=== PATIENT | female | born 1990 | race Caucasian/White ===

== ENCOUNTER 2020-04-12 09:37 | Emergency (ER) | payer MEDICARE ==
[~2020-04-12] VITALS: Ht 170.2 cm; Wt 199.6 kg
[~2020-04-12 09:37] MED LIST: ACETAMINOPHEN-1 EAC1 PO; ACYCLOVIR 800800 MG PO; ADVAIR HFA 45-218 GM INH; ARTHRITIS PAIN650 M2; BACTRIM DS TAB1 EACH PO; BENTYL20 MG PO; BLACK COHOSH200 MG PO; BUTALB-APAP-CA1 EACH PO; CARAFATE 1 GM TA1 G1 PO; CELEBREX 200 M200 MG; CIPROFLOXACIN500 M1 PO; CIPROFLOXACIN500 M3 PO; CLEOCIN HCL150 MG PO; CLEOCIN HCL300 MG PO; COLACE100 MG; COMBIVENT INH; CYMBALTA30 MG; DOXYCYCLINE 10100 MG PO; FERROUS GLUCON325 M4; FLAGYL500 MG PO; FLEXERIL PO; FUROSEMIDE 40 M40 M1; GLUCOPHAGE; GLUCOPHAGE1000 MG PO; HYDROCODONE-AP1 EAC6 PO; IBUPROFEN 800800 M1 PO; KEFLEX500 MG PO; KLOR-CON 1010 MEQ PO; LEVOTHYROXIN0.125 M2 PO; LEVOTHYROXINE0.2 M1 PO; LEVOTHYROXINE100 MC1 IV; LIDODERM 5%1 PATCH; MEDROLDOSEPACK PO; METFORMIN HCL500 M2 PO; NAPROSYN500 MG PO; NAPROXEN DELAY500 M1; NEURONTIN 300300 M1 PO; NIASPAN ER 101000 M1; NORCO 5-325 TA1 EAC1 PO; NORCO 5-325 TA1 EACH PO; NYSTATIN15 GM; OMEPRAZOLE20 M2 PO; OMEPRAZOLE20 MG PO; OS-CAL 500+D C1 EACH PO; PHENERGAN 25 MG25 M1 PO; PHENERGAN 25 MG25 MG PO; PRILOSEC 20 MG20 MG PO; PROAIR HFA8.5 GM INH; PROAIR HFA8.5 GM PO; PROBIOTIC & AC1 EACH; PROMETHAZINE12.5 M1 PO; PROZAC 20 MG20 M1 PO; REGLAN 10 MG TA10 M1 PO; REGLAN 10 MG TA10 MG PO; REGLAN 5 MG TAB5 MG PO; ROBAXIN 750 MG750 M1 PO; ROCEPHIN 11 GM/1001 IV; SIMVASTATIN40 MG; SINGULAIR 10 MG10 MG PO; SYMBICORT80 MCG/4.1 INH; SYNTHROID200 MCG PO; TIZANIDINE HCL4 M1; ULTRAM 50MG TAB50 MG PO; VITAMIN D1000 UNI1 PO; ZANTAC; ZOFRAN ODT4 MG PO; ZOFRAN4 MG PO; ZPAK PO
[2020-04-12] MEDS ORDERED: DOXYCYCLINE 10100 MG PO (10:20)
[2020-04-12] MEDS ORDERED: NORCO 5-325 TA1 EAC2 PO (10:20)
[2020-04-12] MEDS ORDERED: IBUPROFEN 800800 M1 PO (10:20)
[2020-04-12 11:22] VITALS: BP 114/80
== END 2020-04-12 11:19 | disposition home or self-care (01) ==
LOC: M.ERS 09:37
DX: L02.212 Cutaneous abscess of back [any part, except buttock and flank] (principal); L03.312 Cellulitis of back [any part except buttock and flank]; K31.84 Gastroparesis; K21.9 Gastro-esophageal reflux disease without esophagitis; G47.30 Sleep apnea, unspecified; J45.909 Unspecified asthma, uncomplicated; E66.01 Morbid (severe) obesity due to excess calories; Z68.44 Body mass index [BMI] 60.0-69.9, adult; Z88.7 Allergy status to serum and vaccine; Z91.030 Bee allergy status; Z90.89 Acquired absence of other organs; Z86.2 Personal history of diseases of the blood and blood-forming organs and certain disorders involving the immune mechanism

== ENCOUNTER 2020-04-17 14:20 | Emergency (ER) | payer MEDICARE ==
[~2020-04-17] VITALS: Ht 170.2 cm; Wt 204.1 kg
[~2020-04-17 14:20] MED LIST changes: +NORCO 5-325 TA1 EAC2 PO
[2020-04-17] MEDS ORDERED: BACTRIM DS TAB1 EACH PO (15:09)
[2020-04-17] MEDS ORDERED: KEFLEX500 M1 PO (15:09)
[2020-04-17] MEDS ORDERED: PERCOCET 5-3251 EACH PO (15:09)
[2020-04-17 15:28] VITALS: BP 169/89
== END 2020-04-17 15:29 | disposition home or self-care (01) ==
LOC: M.ERS 14:20
DX: N76.2 Acute vulvitis (principal); K21.9 Gastro-esophageal reflux disease without esophagitis; J45.909 Unspecified asthma, uncomplicated; G47.30 Sleep apnea, unspecified; K31.84 Gastroparesis; E89.0 Postprocedural hypothyroidism; E66.01 Morbid (severe) obesity due to excess calories; Z90.89 Acquired absence of other organs; Z85.850 Personal history of malignant neoplasm of thyroid; Z86.2 Personal history of diseases of the blood and blood-forming organs and certain disorders involving the immune mechanism; Z91.030 Bee allergy status; Z88.7 Allergy status to serum and vaccine; Z88.8 Allergy status to other drugs, medicaments and biological substances

== ENCOUNTER 2021-07-30 18:46 | Emergency (ER) | payer MEDICARE ==
[~2021-07-30] VITALS: Ht 170.2 cm; Wt 240.4 kg
[~2021-07-30 18:46] MED LIST changes: +AUGMENTIN 875-1 EACH PO; +FLAGYL500 M1 PO; +HUMALOG100 UNIT/1 SUBQ; +KEFLEX500 M1 PO; +LANTUS100 UNIT/M SUBQ; +OXYCODONE HCL 55 MG PO; +PERCOCET 5-3251 EACH PO
[2021-07-30 19:26] LABS: INFLUENZA A ANTIGEN Positive (Negative); INFLUENZA B ANTIGEN Negative (Negative)
[2021-07-30] MEDS ORDERED: TAMIFLU75 MG PO (19:57)
[2021-07-30] MEDS ORDERED: ONDANSETRON ODT4 MG PO (19:57)
[2021-07-30] MEDS ORDERED: APAP W/CODEINE1 TA2 PO (19:57)
[2021-07-30 20:06] VITALS: BP 141/70
[2021-07-30] MEDS ORDERED: PROAIR HFA8.5 GM INH (20:06)
[2021-07-30] MEDS ORDERED: TESSALON PERLE100 MG PO (20:07)
== END 2021-07-30 20:07 | disposition home or self-care (01) ==
LOC: M.ERS 18:46
PROVIDERS: Personal Emergency Response Attendant
DX: J10.1 Influenza due to other identified influenza virus with other respiratory manifestations (principal); Z20.822 Contact with and (suspected) exposure to COVID-19; E66.01 Morbid (severe) obesity due to excess calories; K21.9 Gastro-esophageal reflux disease without esophagitis; J45.909 Unspecified asthma, uncomplicated; Z90.89 Acquired absence of other organs; Z98.890 Other specified postprocedural states; Z79.899 Other long term (current) drug therapy; Z88.7 Allergy status to serum and vaccine; Z91.030 Bee allergy status